=== PATIENT | female | born 1975 | race Caucasian/White ===

== ENCOUNTER → 2025-04-14 07:33 | Outpatient (REF) | payer OTHER, SELFPAY ==
[2025-04-14 08:47] LABS: D-Dimer 0.28 ug/mlFEU (0.00-0.50)
[2025-04-14 08:54] LABS: NT-proBNP < 20.0 pg/ml
[2025-04-14 09:12] LABS: Erythrocyte Sed Rate 55 mm/hour (0-20)
[2025-04-14 09:18] LABS: Microalbumin, Random Urine 1.8 mg/dl (0.6-1.7); Microalbumin/creatinine Ratio 6.5 mg/g
[2025-04-14 09:19] LABS: ALT (SGPT) 23 U/L (0-35); AST (SGOT) 25 U/L (14-36); Albumin 4.6 g/dl (3.5-5.0); Alkaline Phosphatase 83 U/L (38-126); Blood Urea Nitrogen 14 mg/dl (7-17); Calcium 9.7 mg/dl (8.4-10.2); Carbon Dioxide 25 mmol/L (22-30); Chloride 103 mmol/L (98-107); Glucose 129 mg/dl (70-99); HDL Cholesterol 36 mg/dl; LDL Cholesterol, Calculated 105 mg/dl; Potassium 3.7 mmol/L (3.5-5.1); Sodium 140 mmol/L (135-145); Total Bilirubin 0.9 mg/dl (0.2-1.3); Total Cholesterol 206 mg/dl (50-199); Total Protein 8.2 g/dl (6.3-8.2); Triglyceride 327 mg/dl (10-149); Very Low Density Lipoprotein 65 mg/dl (0-30); eGFR > 60.00
[2025-04-14 09:20] LABS: Vitamin D, 25-OH*** 19.3 ng/mL (30-80)
[2025-04-14 09:46] LABS: Glycohemoglobin (HgbA1c) 7.3 % (4.0-5.6)
[2025-04-16 07:37] LABS: ANA, IgG Reflex to HEp-2 None Detected (None Detected)
== END ==
LOC: REG 07:33
PROVIDERS: ATTENDING PHYSICIAN Family Medicine
DX: M79.89 Other specified soft tissue disorders (principal); E11.9 Type 2 diabetes mellitus without complications; E55.9 Vitamin D deficiency, unspecified; E78.1 Pure hyperglyceridemia
CPT/HCPCS: 36415; 80053; 80061; 82043; 82306; 82570; 83036; 83880; 84550; 85379; 85652; 86038

== ENCOUNTER → 2025-06-23 13:47 | Outpatient (REF) | payer BC, SELFPAY | LOC: RAD 13:47 | PROVIDERS: ATTENDING PHYSICIAN Family Medicine | DX: M79.89 Other specified soft tissue disorders (principal) | CPT/HCPCS: 93925; 93970 ==

== ENCOUNTER 2025-07-08 08:30 | Emergency (ER) | payer BC, SELFPAY ==
[2025-07-08 08:33] VITALS: BP 158/102
--- NOTE | 2025-07-08 10:26 | ED.GENMED ---
History of Present Illness
General
Chief Complaint: Bowel Problem
Source: patient
Exam Limitations: none
Time Seen by Provider: 07/08/25 09:47
Nursing documentation reviewed up to this point in time: agreed with
History of Present Illness
History of Present Illness:
Patient with history of diabetes, currently taking Mounjaro for the past 3 months, as well as IBS, presents to ED secondary to inability to have bowel movements despite urge over the past 1 week. Patient has spoken with her primary care physician
and has tried a number of [id number] medications, without improvement in symptoms. Denies abdominal pain. Denies vomiting or diarrhea. Denies fever. Denies trauma. Denies loss of appetite. Denies previous history of similar symptoms.
With her IBS, patient has had symptoms of diarrhea in the past, but never constipation. Of note, patient reports having had normal colonoscopy earlier this year, as well as Cologuard testing.
Past History
Past History
ED Past Medical History: GERD and Other (IBS)
ED Past Surgical History:
Social History
Tobacco: Non-smoker
Alcohol: None
Personal:
Living: with family
Review of Systems
Review of Systems
Allergies reviewed?: Yes
All Other Systems: ROS reviewed and negative except as documented in HPI and ROS
Constitutional: Reports no symptoms; Denies fever
ABD/GI: Reports constipated; Denies abdominal pain, vomiting or diarrhea
: Reports no symptoms
Musculoskeletal: Reports no symptoms
Skin: Reports no symptoms
Neurological: Reports no symptoms
Phy Exam
Physical Exam
Physical Exam:
Physical Exam
General: no apparent distress, not acutely ill. afebrile
Head: nc/at. eomi
Neck: supple. no meningeal signs.
Heart: s1/s2 regular rate and rhythm
Lungs: no acute respiratory distress. clear bilaterally
Abdomen: normal bowel sounds. not tender. no distention
Neuro: alert and oriented x 3. no focal neurological deficits
Skin: no rash
Psychiatric: well kept. interactive and cooperative
Extremities: no edema. no calf tenderness.
Course
Orders/Labs/Results
Orders:
Orders
07/08/25 10:25
CR Abdomen - 1 View Urgent
Comment:
Reason For Exam: con
07/08/25 10:37
Phosphate Enema [Fleet Phosphate Enema-Adult] 135 ml RECTAL NOW STA
Vital Signs
Initial and Last Documented VS:
Initial Vital Signs
Temp Pulse Resp BP Pulse Ox
98.1 F 98 18 158/102 98
07/08/25 08:33 07/08/25 08:33 07/08/25 08:33 07/08/25 08:33 07/08/25 08:33
Last Documented Vital Signs
Temp Pulse Resp BP Pulse Ox
97.9 F 98 18 148/82 98
07/08/25 12:34 07/08/25 08:33 07/08/25 08:33 07/08/25 12:00 07/08/25 10:28
MDM/Problems Addressed
MDM/Problems Addressed:
Rectal exam performed at bedside, accompanied by GERMAINE Mcdermott. Small amount of soft stool removed. Afterwards, patient given Fleet enema, with successful large bowel movement, with improvement in symptoms. Patient feels comfortable going home at
this time. Patient will continue stool softeners as outpatient, along with MiraLAX, as well as PCP follow-up.
*Pulse Oximetry
SaO2: 98
Oxygen Mode of Delivery: Room air
Patient hypoxic: no
*Critical Care Note
Total Time (30-74mins, 75-104mins- exclusive of procedures): Not Applicable
ED Attending Note
-
Portions of this chart may have been created with voice recognition software.� Occasional wrong word or��sound alike� substitutions may have occurred due to the inherent limitations of voice recognition software.
Discharge Plan
Departure
Patient Disposition: Home (Routine Discharge)
Date of Disposition: 07/08/25
Time of Disposition: 12:12
Patient with high blood pressure during this ER visit?: Yes
Condition: Good
Discharge Problem:
Constipation
Instructions: Constipation, Adult (DC)
Referrals:
UNKNOWN - PT DOES,NOT KNOW [Family Provider]
Activity Restrictions/Additional Instructions:
As discussed, please follow-up with your primary care physician with any further concerns.
Interventions
Interventions:
*Risk Screen - Suicide Last Done: 07/08/25 08:33
*General Assessment Last Done: 07/08/25 11:33
*Neglect/Abuse Screening Last Done: 07/08/25 08:33
*ED- Fall Risk Assessment Last Done: 07/08/25 11:33
*Nursing Disposition Last Done: 07/08/25 12:34
BS-Ilnfys-Cmdcfjkqdr Assessment Last Done: 07/08/25 11:54
Discharge Date and Time
Discharge Date/Time: 07/08/25 12:33
Print Language: INDONESIAN
[2025-07-08] MEDS: FLEET PHOSPHATE ENEMA-ADULT 135 ML RECTAL (11:16)
[2025-07-08 12:00] VITALS: BP 148/82
== END 2025-07-08 12:33 | disposition home or self-care (01) ==
LOC: EMR 08:30
PROVIDERS: EMERGENCY PHYSICIAN Emergency Medicine
DX: K59.00 Constipation, unspecified (principal); E11.9 Type 2 diabetes mellitus without complications; Z98.891 History of uterine scar from previous surgery
CPT/HCPCS: 99283; 74018